=== PATIENT | female | born 2000 | race Two or more races ===

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

== ENCOUNTER 2021-10-16 14:58 | Emergency (ER) | payer OTHER ==
[~2021-10-16] VITALS: Ht 162.6 cm; Wt 57.2 kg
[~2021-10-16 14:58] MED LIST: BACTRIM DS TAB1 EACH PO
== END 2021-10-16 21:47 | disposition home or self-care (01) ==
LOC: EMR PED 14:58
DX: R11.10 Vomiting, unspecified (principal); Z20.822 Contact with and (suspected) exposure to COVID-19

== ENCOUNTER 2024-03-28 17:31 | Emergency (ER) | payer OTHER ==
[~2024-03-28] VITALS: Ht 162.6 cm; Wt 56.7 kg
[2024-03-28] MEDS ORDERED: KETOROLAC TROMETHAMINE 60 MG VIAL IM STA (18:38)
[2024-03-28] MEDS ORDERED: KETOROLAC TROMETHAMINE 60 MG VIAL IM ONE (18:44)
== END 2024-03-28 21:04 | disposition home or self-care (01) ==
LOC: ER 17:31
DX: G43.909 Migraine, unspecified, not intractable, without status migrainosus (principal)

== ENCOUNTER 2024-04-01 10:47 | Emergency (ER) | payer OTHER ==
[~2024-04-01] VITALS: Ht 162.6 cm; Wt 59.0 kg
[2024-04-01] MEDS ORDERED: SUMATRIPTAN SUCCINATE 6 MG/0.5 ML VIAL SUBCUTANEO STA (11:45)
[2024-04-01] MEDS ORDERED: SUMATRIPTAN SUCCINATE 6 MG/0.5 ML VIAL SUBCUTANEO ONE (11:53)
== END 2024-04-01 15:15 | disposition home or self-care (01) ==
LOC: ER 10:49
DX: G43.909 Migraine, unspecified, not intractable, without status migrainosus (principal)